=== PATIENT | male | born 1970 | race Caucasian/White ===

== ENCOUNTER 2022-07-13 07:55 | Emergency (ER) | payer OTHER, MEDICAID, SELFPAY ==
--- NOTE | 2022-07-13 08:05 | DI.CT.S_ITS ---
PROCEDURE: CT KIDNEY URETER BLADDER (KUB) INDICATIONS: LLQ pain, hematuria TECHNIQUE: Axial sections were acquired from the lung bases to the pubic symphysis. Coronal and sagittal reformats were performed. For radiation dose reduction, the following was used: automated exposure control, adjustment of mA and/or kV according to patient size. COMPARISON: None. FINDINGS: Image quality: Excellent. Lung bases: Unremarkable. Heart: No significant findings. URINARY: Right Kidney: Large burden of punctate, nonobstructing stones. No hydronephrosis. Right Ureter: No hydroureter. Left Kidney: Large burden of punctate, nonobstructing stones. No hydronephrosis. Left Ureter: No hydroureter. Bladder: Normal wall thickness. No stones. ABDOMEN: Liver: Subcentimeter hypoattenuating lesion, too small to characterize by CT, located in segment 4A. Gallbladder: Unremarkable. Biliary ducts: Unremarkable. Pancreas: Unremarkable. Spleen: Unremarkable. Adrenal Glands: Unremarkable. Stomach and Bowel: Stomach, small bowel loops, and colon are unremarkable. Prior partial colectomy, surgical anastomosis in the deep pelvis. Peritoneum: No abnormal intraperitoneal fluid. No free air. Ventral Wall: No hernia. Abdominal Nodes: No enlarged retroperitoneal or mesenteric lymph nodes. Vessels: Aorta and inferior vena cava are normal in size. PELVIS: Pelvic Organs: Unremarkable. Pelvic Nodes: Unremarkable. Miscellaneous: Small left inguinal hernia containing fat. Bones: Unremarkable. IMPRESSION: Large burden of punctate, nonobstructing stones. No hydronephrosis. Dictated by: Tk Grubbs M.D. on 07/13/2022 at 8:27 Approved by: Tk Grubbs M.D. on 07/13/2022 at 8:29
[2022-07-13 08:06] VITALS: BP 131/90; PULSE 74; RESP 16; TEMP 36.6; O2SAT 97; BMI 34.0
--- NOTE | 2022-07-13 08:07 | ED.ABDPAIN ---
HPI - Abdominal Pain General Chief Complaint: Urogenital-Male Stated Complaint: urinating blood Time Seen by Provider: 07/13/22 07:59 History of Present Illness HPI narrative: 52-year-old smoker with history of multiple bowel surgeries and prior kidney stones presents with a chief complaint of left lower quadrant pain and hematuria for the past 24 hours. He states this does feel different than his prior kidney stones but it is hard for him to differentiate the abdominal discomfort as he is pretty much always in pain given his scar tissue and prior surgeries. He denies any fever or chills. He has no back pain. He denies nausea, vomiting or diarrhea. He started noting blood in his urine 24 hours ago and denies any dysuria, frequency or urgency. He does not take blood thinners. He denies obvious provocation, palliation or radiation of his pain Related Data Previous Rx's Medication Instructions Recorded hydrocodone 5 mg-acetaminophen 325 1 tab PO Q4-6H PRN pain #10 tabs 07/13/22 mg tablet ondansetron 4 mg disintegrating 4 mg PO TID-QID PRN nausea and 07/13/22 tablet vomiting #10 tabs tamsulosin 0.4 mg capsule (Flomax) 0.4 mg PO DAILY #30 caps 07/13/22 Review of Systems Review of Systems Narrative: GENERAL: Denies chills, fatigue, malaise, fever, sweats. HEENT: Denies sinus pain, ear pain, sore throat, difficulty swallowing, dizziness. RESPIRATORY: Denies dyspnea, cough, wheezing, hemoptysis, sputum. CARDIOVASCULAR: Denies chest pain, palpitations, orthopnea, edema, GASTROINTESTINAL: Denies nausea, vomiting, abdominal pain, diarrhea, constipation, melena. : See HPI MUSCULOSKELETAL: denies weakness, joint pain, or bony pain SKIN: Denies rash, skin lesions, or other NEUROLOGIC: Denies weakness, headache, numbness, change in speech, confusion, seizures, incoordination. PSYCHIATRIC: No concerning psychosocial issues. 12 point review of systems is negative except for those stated above Exam Narrative Exam Narrative: GENERAL: [52] year old patient appears stated age. Well-developed patient, in mild distress. Appears uncomfortable, rubbing his left lower abdomen HEAD: Atraumatic. Normocephalic. EYES: Pupils equal round and reactive. Extraocular motions intact. No scleral icterus. No injection or drainage. ENT: Nose without bleeding, purulent drainage. Throat without erythema, tonsillar hypertrophy or exudate. Airway patent. NECK: Trachea midline. Non tender CARDIOVASCULAR: Regular rate and rhythm without murmurs, gallops, or rubs. RESPIRATORY: Clear to auscultation. Breath sounds equal bilaterally. No wheezes, rales, or rhonchi. GASTROINTESTINAL: Abdomen soft, non-tender, nondistended. EXTREMITIES: No edema or joint tenderness. BACK: Nontender without deformity or crepitance. No flank tenderness. NEURO: AOx3. SKIN: No rash or erythema of visible areas Initial Vital Signs Initial Vital Signs: Vital Signs Temperature 97.9 F 07/13/22 08:06 Pulse Rate 74 07/13/22 08:06 Respiratory Rate 16 07/13/22 08:06 Blood Pressure 131/90 07/13/22 08:06 Pulse Oximetry 97 07/13/22 08:06 Oxygen Delivery Method Room Air 07/13/22 08:06 Course Orders Ordered: ED Orders 07/13/22 08:05 CT kidney ureter bladder (KUB) Stat 07/13/22 08:09 Ictotest Urine Stat Urinalysis and Microscopic Stat Urine Culture Stat 07/13/22 08:15 Complete Blood Count AUTO DIFF Stat Comprehensive Metabolic Panel Stat Prothrombin Time INR Stat Discontinued Medications Ketorolac Tromethamine (Ketorolac 30 Mg/Ml Vial) 15 mg IV NOW ONE Stop: 07/13/22 08:40 Tamsulosin HCl (Tamsulosin 0.4 Mg Capsule) 0.4 mg PO NOW ONE Stop: 07/13/22 08:40 Vital Signs Vital signs: Vital Signs - 8 hr 07/13/22 08:06 Temperature 97.9 F Pulse Rate 74 Respiratory Rate 16 Blood Pressure 131/90 Pulse Oximetry 97 Oxygen Delivery Method Room Air MDM - Abdominal Pain Lab Data 07/13/22 08:15 07/13/22 08:15 Labs: Lab Results 07/13/22 07/13/22 07/13/22 Range/Units 08:09 08:15 08:15 WBC 3.5 L (4.5-11.0) X10^3/uL RBC 4.88 (4.5-5.9) X10^6/uL Hgb 15.6 (13.5-17.5) g/dL Hct 45.4 (41-53) % MCV 93.0 (80-100) fL MCH 31.9 (26-34) PG MCHC 34.3 (30-36) % RDW 13.5 (11.6-14.8) % Plt Count 280 (150-400) X10^3/uL Neut % (Auto) 51.7 (50-75) % Lymph % (Auto) 22.6 L (25-40) % [place] % (Auto) 18.5 H (3-14) % Eos % (Auto) 6.3 H (2-4) % Baso % (Auto) 0.9 (0-2) % Neut # (Auto) 1800 (5183-0738) /uL Lymph # (Auto) 800 L (0975-7637) /uL [place] # (Auto) 700 (0-900) /uL Eos # (Auto) 200 (0-450) /uL Baso # (Auto) 0 (0-100) /uL PT 12.1 (10.1-12.7) SECONDS INR 1.1 (0.9-1.3) Sodium (137-145) mmol/L Potassium (3.4-5.1) mmol/L Chloride (98-107) mmol/L Carbon Dioxide (22-32) mmol/L BUN (9-20) mg/dL Creatinine (0.66-1.25) mg/dL Estimated GFR (>60) mL/min BUN/Creatinine Ratio (6-22) Glucose (70-100) mg/dL Calcium (8.4-10.2) mg/dL Total Bilirubin (0.2-1.3) mg/dL AST (17-59) IU/L ALT (<50) IU/L Alkaline Phosphatase (38-126) U/L Total Protein (6.3-8.2) g/dL Albumin (3.5-5.0) g/dL Globulin (1.7-4.1) g/dL Albumin/Globulin Ratio (1.0-2.8) Urine Color Red Urine Appearance Cloudy Urine pH 7.0 (4.5-8.0) Ur Specific [place] 1.020 (1.000-1.035) Urine Protein Trace H (Negative) Urine Glucose (UA) Negative (Negative) g/dL Urine Ketones Negative (NEGATIVE) Urine Occult Blood 3+ H (Negative) Urine Nitrate Negative (Negative) Urine Bilirubin 1+ H (NEGATIVE) Ur Bilirubin Confirm Negative (Negative) Urine Urobilinogen 1.0 (0.2) E.U./dL Ur Leukocyte Esterase Trace H (NEGATIVE) Urine RBC >100/hpf H (0-5/HPF) Urine WBC 1-5/hpf (0-5/HPF) Ur Squamous Epith Cells 0-1 /hpf (0-5/HPF) Urine Bacteria None seen (None) Ur Culture Indicated? Specimen cultured 07/13/22 Range/Units 08:15 WBC (4.5-11.0) X10^3/uL RBC (4.5-5.9) X10^6/uL Hgb (13.5-17.5) g/dL Hct (41-53) % MCV (80-100) fL MCH (26-34) PG MCHC (30-36) % RDW (11.6-14.8) % Plt Count (150-400) X10^3/uL Neut % (Auto) (50-75) % Lymph % (Auto) (25-40) % [place] % (Auto) (3-14) % Eos % (Auto) (2-4) % Baso % (Auto) (0-2) % Neut # (Auto) (0213-1553) /uL Lymph # (Auto) (5444-5449) /uL [place] # (Auto) (0-900) /uL Eos # (Auto) (0-450) /uL Baso # (Auto) (0-100) /uL PT (10.1-12.7) SECONDS INR (0.9-1.3) Sodium 138 (137-145) mmol/L Potassium 4.2 (3.4-5.1) mmol/L [place] 103 (98-107) mmol/L Carbon Dioxide 28 (22-32) mmol/L BUN 20 (9-20) mg/dL Creatinine 0.91 (0.66-1.25) mg/dL Estimated GFR > 60 (>60) mL/min BUN/Creatinine Ratio 22.0 (6-22) Glucose 119 H (70-100) mg/dL Calcium 9.0 (8.4-10.2) mg/dL Total Bilirubin 0.7 (0.2-1.3) mg/dL AST 26 (17-59) IU/L ALT 18 (<50) IU/L Alkaline Phosphatase 71 (38-126) U/L Total Protein 7.7 (6.3-8.2) g/dL Albumin 4.2 (3.5-5.0) g/dL Globulin 3.5 (1.7-4.1) g/dL Albumin/Globulin Ratio 1.2 (1.0-2.8) Urine Color Urine Appearance Urine pH (4.5-8.0) Ur Specific [place] (1.000-1.035) Urine Protein (Negative) Urine Glucose (UA) (Negative) g/dL Urine Ketones (NEGATIVE) Urine Occult Blood (Negative) Urine Nitrate (Negative) Urine Bilirubin (NEGATIVE) Ur Bilirubin Confirm (Negative) Urine Urobilinogen (0.2) E.U./dL Ur Leukocyte Esterase (NEGATIVE) Urine RBC (0-5/HPF) Urine WBC (0-5/HPF) Ur Squamous Epith Cells (0-5/HPF) Urine Bacteria (None) Ur Culture Indicated? Imaging Data CT scan - abdomen/pelvis: Radiologist's Impression: Large burden of punctate nonobstructing stones, no hydronephrosis MDM Narrative Medical decision making narrative: CC: 52-year-old male with hematuria Complicating co-morbidities: Prior bowel surgeries, kidney stones, age greater than 50 Data collected from: Patient Medical records reviewed: Prior notes reviewed in our EMR Differential considered, but not limited to: Kidney stone, bowel issue, urine infection versus other Exam documented above, pertinent findings include: Left lower quadrant pain Lab Test results independently reviewed as above. Pertinent findings: Independently reviewed EKG as above Imaging studies independently reviewed: Large burden of punctate stones, no obstructive process Treatments: Toradol and Flomax Re-evaluation: Pain controlled, tolerating orals Discussion: Patient with left lower quadrant pain and hematuria with history of kidney stones. Pain is well controlled, there is no signs of sepsis, no infective process noted in urine or otherwise. No evidence of renal impairment. Imaging demonstrates multiple stones but no obstruction. Blood is not gross hematuria, indication for CT IVP at this time not indicated. Most likely from kidney stone. Patient given contact info for local urology and we turned instructions Disposition: see below, along with detailed discharge instructions that have been reviewed with patient as well as indications for ED re-evaluation and additional outpatient follow up Discharge Plan Departure Patient Disposition: Home Clinical Impression: Kidney calculi, Hematuria Instructions: DI for Kidney Stones, DI for Hematuria Activity Restrictions/Additional Instructions: *You have been diagnosed with [kidney stones and blood in the urine] *What to do: *Please continue to take your regular medications as directed. [x ] New medication prescriptions sent to your pharmacy: [ [facility] in [place]] [ ] New medication written as a paper prescription [ ] No new medications given *Please follow up with your primary care provider in 2-3 days, call for an appointment. Let them know you were seen in the Emergency Department and that we ask that you be seen in follow up. We will electronically transmit a record of today's note if your PCP is in our system * also as we discussed, I have given you contact information for the local urology group. Please call the number listed below, let them know that you were seen and evaluated in the emergency department and we would like you seen in follow-up. I will electronically transmitted a copy of the note *Return to Emergency Department if you should have any new, worsening or concerning symptoms, such as [fever greater than 101 F, shaking chills, worsening pain, persistent vomiting or other bothersome symptoms You have been prescribed a short course of narcotic medications. These are potentially dangerous and addictive medications that should be used carefully. While on these medications you cannot drive or operate heavy machinery. Additionally, you cannot sign legal documents or perform any duties such as this. Many people get constipated on narcotic medications so it would be advisable to discuss stool softeners with the pharmacist when you greens picker your prescription. Please understand that we cannot provide further refills of narcotics or controlled substances through the ED and your pain management will need to be through your Primary Care Provider] Prescriptions: New hydrocodone-acetaminophen 5-325 mg tablet 1 tab PO Q4-6H PRN (Reason: pain) Qty: 10 0RF tamsulosin [Flomax] 0.4 mg capsule 0.4 mg PO DAILY Qty: 30 0RF ondansetron 4 mg tablet,disintegrating 4 mg PO TID-QID PRN (Reason: nausea and vomiting) Qty: 10 0RF Referrals: Juan M Pride MD [Physician] - Stand Alone Forms: Patient Portal/API
[2022-07-13 08:20] LABS: Add Manual Diff / Slide Review NO; Basophils Absolute Auto 0 /uL (0-100); Basophils Percent Auto 0.9 % (0-2); Eosinophils Absolute Auto 200 /uL (0-450); Eosinophils Percent Auto 6.3 % (2-4); Hematocrit 45.4 % (41-53); Hemoglobin 15.6 g/dL (13.5-17.5); Lymphocytes Absolute Auto 800 /uL (1100-4500); Lymphocytes Percent Auto 22.6 % (25-40); Mean Corpuscular HGB Conc 34.3 % (30-36); Mean Corpuscular Hemoglobin 31.9 PG (26-34); Monocytes Absolute Auto 700 /uL (0-900); Monocytes Percent Auto 18.5 % (3-14); Neutrophils Absolute Auto 1800 /uL (1500-7000); Neutrophils Percent Auto 51.7 % (50-75); Platelet Count 280 X10^3/uL (150-400); Red Blood Cell Count 4.88 X10^6/uL (4.5-5.9); Red Cell Distribution Width 13.5 % (11.6-14.8); White Blood Cell Count 3.5 X10^3/uL (4.5-11.0)
[2022-07-13 08:21] LABS: Appearance Urine UA CLOUDY; Bilirubin Urine UA 1+ (NEGATIVE); Color Urine UA RED; Glucose Urine UA NEGATIVE (Negative); Ketones Urine UA NEGATIVE (NEGATIVE); Leukocyte Esterase Urine UA TRACE (NEGATIVE); Nitrite Urine UA NEGATIVE (Negative); Occult Blood Urine UA 3+ (Negative); Protein Urine UA TRACE (Negative)
[2022-07-13 08:24] LABS: Ictotest Urine Negative (Negative)
[2022-07-13 08:26] LABS: Bacteria Urine None Seen; RBC Urine >100/HPF (0-5/HPF); Squamous Epithelial Cell Urine 0-1 /HPF (0-5/HPF); WBC Urine 1-5/HPF (0-5/HPF)
[2022-07-13 08:26] LABS: INR 1.1 (0.9-1.3); Prothrombin Time 12.1 SECONDS (10.1-12.7)
[2022-07-13 08:27] LABS: Culture Indicated Urine Specimen Cultured
[2022-07-13 08:31] LABS: Alanine Aminotransferase 18 IU/L (<50); Albumin 4.2 g/dL (3.5-5.0); Albumin Globulin Ratio 1.2 (1.0-2.8); Alkaline Phosphatase 71 U/L (38-126); Aspartate Aminotransferase 26 IU/L (17-59); Bilirubin Total 0.7 mg/dL (0.2-1.3); Blood Urea Nitrogen 20 mg/dL (9-20); Carbon Dioxide 28 mmol/L (22-32); Chloride 103 mmol/L (98-107); Estimated Glomerular Filt Rate > 60 mL/min (>60); Globulin 3.5 g/dL (1.7-4.1); Glucose 119 mg/dL (70-100); HEMOLYSIS < 15 (0-50); Potassium 4.2 mmol/L (3.4-5.1); Sodium 138 mmol/L (137-145); Total Protein 7.7 g/dL (6.3-8.2)
[2022-07-13] MEDS: KETOROLAC 30 MG/ML VIAL 15 MG IV (08:53)
[2022-07-13] MEDS: TAMSULOSIN 0.4 MG CAPSULE PO (08:54)
== END 2022-07-13 08:54 | disposition home or self-care (01) ==
PROVIDERS: Emergency Provider Emergency Medicine
DX: N20.0 Calculus of kidney (principal); R31.9 Hematuria, unspecified
CPT/HCPCS: 36415; 74176; 80053; 81001; 85025; 85610; 87086; 96374; 99284; J1885

== ENCOUNTER 2024-02-14 13:35 | Emergency (ER) | payer OTHER, MEDICAID, SELFPAY ==
[2024-02-14] VITALS (14 sets, daily range): BP systolic 114–154; BP diastolic 68–88; PULSE 61–83; RESP 12–21; TEMP 36.8–37.1; O2SAT 96–100; BMI 31.0
--- NOTE | 2024-02-14 13:47 | ED_ITS ---
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 He has had a stressful day at work today was ?yelled at like he was an 6-year-old and within 2 hours is having severe abdominal pain. Starts at his umbilicus and radiates into the left side. He describes it as a squeezing pulling tugging feeling far worse than usual pain that he has become accustomed to. Nauseated but no vomiting. He had a small stool only today. No fevers or chills. Has had extensive interactions with the medical system, multiple providers, testing , studies etcetera and has very specific requests based on this long history. He states that he believes his last CT scan was in 2021. Three days ago he apparently had a large volume of barium as part of a fecal emptying test ordered through [facility] in [place] Related Data Previous Rx's Medication Instructions Recorded hydrocodone 5 mg-acetaminophen 325 1 tab PO Q4-6H PRN pain #10 tabs 07/13/22 mg tablet ondansetron 4 mg disintegrating 4 mg PO TID-QID PRN nausea and 07/13/22 tablet vomiting #10 tabs tamsulosin 0.4 mg capsule (Flomax) 0.4 mg PO DAILY #30 caps 07/13/22 oxycodone-acetaminophen 5 mg-325 1 tab PO Q6H PRN pain #10 tabs 02/14/24 mg tablet Allergies Allergy/AdvReac Type Severity Reaction Status Date / Time Penicillins Allergy Verified 02/14/24 13:40 Review of Systems Review of Systems Narrative: Pertinent positive and negative findings as per HPI Patient History Medical History Crohn's disease Surgical History History of bowel resection Social History Smoking Status: Current some day smoker Smoking Status: Current some day smoker alcohol intake frequency: holidays/special occasions only Substance Use Type: marijuana Exam Initial Vital Signs Initial Vital Signs: Vital Signs Temperature 98.7 F 02/14/24 13:35 Pulse Rate 82 02/14/24 13:35 Respiratory Rate 14 02/14/24 13:35 Blood Pressure 138/88 02/14/24 13:35 Pulse Oximetry 99 02/14/24 13:35 Oxygen Delivery Method Room Air 02/14/24 13:35 General: Chronically ill-appearing, frustrated but Able to give a complete and coherent history. Well-nourished well-developed HEENT: Moist mucous membranes, normal sclera with reactive pupils, Respiratory: Lungs are clear to auscultation, no wheezing no rales no rhonchi. Full and symmetrical air movement Cardiac: Regular rate and rhythm no murmurs no bruits Abdomen: Soft, nontender to palpation despite descriptions of severe pain. He is certainly does not have an acute surgical abdomen Skin: Warm and dry, no rashes Neurologic: Grossly neurologically intact with no obvious asymmetries or abnormalities Extremities: No trauma, well perfused Psych: Fluent speech, clearly frustrated with medical care in general and hurting today Course Orders Ordered: ED Orders 02/14/24 13:49 Complete Blood Count AUTO DIFF Stat Comprehensive Metabolic Panel Stat Lactate (Lactic Acid) Stat Lipase Stat Magnesium Stat 02/14/24 14:12 CT abdomen pelvis w con Stat Hydromorphone HCl (Hydromorphone 0.5 Mg Inj) 0.5 mg IV Q15MIN PRN PRN Reason: Pain, Last Admin: 02/14/24 14:28 Dose: 0.5 mg Documented By: DAKOTA Discontinued Medications Sodium Chloride (Normal Saline 0.9%) 1,000 mls @ 1,000 mls/hr IV BOLUS ONE Stop: 02/14/24 15:08 Last Infusion: 02/14/24 15:58 Dose: Infused Documented By: Admin: 02/14/24 14:28 Dose: 1,000 mls/hr Documented By: DAKOTA Ondansetron HCl (Ondansetron 4 Mg/2 Ml Inj) 4 mg IV NOW ONE Stop: 02/14/24 14:10 Last Admin: 02/14/24 14:27 Dose: 4 mg Documented By: SB Vital Signs Vital signs: Vital Signs - 8 hr 02/14/24 13:35 02/14/24 13:40 02/14/24 14:00 Temperature 98.7 F Pulse Rate 82 80 77 Respiratory Rate 14 21 Blood Pressure 138/88 Pulse Oximetry 99 98 97 Oxygen Delivery Method Room Air 02/14/24 14:30 02/14/24 14:33 02/14/24 14:33 Temperature Pulse Rate 70 71 Respiratory Rate 16 15 Blood Pressure 123/72 Pulse Oximetry 96 97 Oxygen Delivery Method Room Air 02/14/24 15:00 02/14/24 15:30 02/14/24 15:58 Temperature Pulse Rate 65 65 Respiratory Rate Blood Pressure 116/73 Pulse Oximetry 97 97 Oxygen Delivery Method Room Air Room Air 02/14/24 15:58 02/14/24 16:00 02/14/24 16:00 Temperature Pulse Rate 61 64 Respiratory Rate 13 Blood Pressure 114/71 Pulse Oximetry 99 98 Oxygen Delivery Method Room Air Medical Decision Making Lab Data 02/14/24 13:49 02/14/24 13:49 Labs: Lab Results 02/14/24 Range/Units 13:49 WBC 5.5 (4.5-11.0) X10^3/uL RBC 4.99 (4.5-5.9) X10^6/uL Hgb 16.0 (13.5-17.5) g/dL Hct 46.1 (41-53) % MCV 92.3 (80-100) fL MCH 32.0 (26-34) PG MCHC 34.6 (30-36) % RDW 13.1 (11.6-14.8) % Plt Count 346 (150-400) X10^3/uL Neut % (Auto) 65.7 (50-75) % Lymph % (Auto) 18.1 L (25-40) % Dodge % (Auto) 13.7 (3-14) % Eos % (Auto) 2.1 (2-4) % Baso % (Auto) 0.4 (0-2) % Neut # (Auto) 3600 (9201-2210) /uL Lymph # (Auto) 1000 L (9641-9547) /uL Dodge # (Auto) 800 (0-900) /uL Eos # (Auto) 100 (0-450) /uL Baso # (Auto) 0 (0-100) /uL Sodium 137 (137-145) mmol/L Potassium 4.0 (3.4-5.1) mmol/L Chloride 107 (98-107) mmol/L Carbon Dioxide 23 (22-32) mmol/L BUN 17 (9-20) mg/dL Creatinine 0.80 (0.66-1.25) mg/dL Estimated GFR > 60 (>60) mL/min BUN/Creatinine Ratio 21.3 (6-22) Glucose 115 H (70-100) mg/dL Lactate 0.9 (0.7-2.1) mmol/L Calcium 9.5 (8.4-10.2) mg/dL Magnesium 2.0 (1.6-2.3) mg/dL Total Bilirubin 0.8 (0.2-1.3) mg/dL AST 31 (17-59) IU/L ALT 18 (<50) IU/L Alkaline Phosphatase 81 (38-126) U/L Total Protein 7.5 (6.3-8.2) g/dL Albumin 4.5 (3.5-5.0) g/dL Globulin 3.0 (1.7-4.1) g/dL Albumin/Globulin Ratio 1.5 (1.0-2.8) Lipase 86 (23-300) U/L Imaging Data CT scan - abdomen/pelvis: Radiologist's Impression: PROCEDURE: CT ABDOMEN PELVIS W CON INDICATIONS: abdominal pain, chrons dz, multiple prior surgeries TECHNIQUE: After the administration of intravenous contrast, axial sections acquired from the lung bases to the pubic symphysis. Coronal and sagittal reformats were performed. For radiation dose reduction, the following was used: automated exposure control, adjustment of mA and/or kV according to patient size. COMPARISON: [facility], CT, CT KIDNEY URETER BLADDER (KUB), 07/13/2022, 7:22. FINDINGS: Image quality: Diagnostic. Lower Chest: No significant findings. ABDOMEN: Liver: No solid mass. Gallbladder: No radiopaque gallstones or wall thickening. Biliary ducts: No biliary dilation. Pancreas: No ductal dilation. Spleen: Size is within normal limits. Adrenal Glands: No adrenal nodules. Kidneys and Ureters: Nonobstructing bilateral renal stones measuring up to 5 millimeters. No hydronephrosis. No solid mass. No complex renal cystic lesion which requires follow up. Stomach and Bowel: Normal colonic caliber, without significant wall thickening. Sigmoid anastomosis is noted. Few diverticula without evidence of acute diverticulitis. Normal appendix. Peritoneum: No abnormal intraperitoneal fluid. No free air. Ventral Wall: No significant ventral hernia. Abdominal Nodes: No retroperitoneal or mesenteric adenopathy by size criteria. Vessels: Aorta and inferior vena cava are normal in size. Atherosclerotic vascular calcifications. PELVIS: Pelvic Organs: Unremarkable. Bladder: No bladder wall thickening, accounting for underdistention. Pelvic Nodes: No enlarged lymph nodes. Miscellaneous: No inguinal hernias are seen. Bones: No aggressive osseous abnormality. Multilevel degenerative changes of the spine. IMPRESSION: 1. No acute findings within the abdomen or pelvis to explain patient's symptoms. 2. Nonobstructing bilateral renal stones measuring up to 5 millimeters. Dictated by: Francisco Dukes M.D. on 02/14/2024 at 15:31 MDM Narrative Medical decision making narrative: CC: abdominal pain Complicating co-morbidities: Long history of Crohn's disease, bowel surgeries, reports that any time he has a colonoscopy he ends up septic, complains of reflux so severe that is sometimes water feels like shards of ice going down his throat. Data collected from: patient Social determinants of health that may influence the patients condition: Extensive interactions with multiple levels of the medical system throughout his life Medical records reviewed: Gastroenterology notes from Dr. Toussaint January 18, 2024 are reviewed. Primary care note discussing this a tear in his colon shown by a fecal damage g which shows a rectocele.. Long discussion of disagreements between patient and other medical staff and consultants. Apparently there was no tissue diagnosis of Crohn's disease and he wanted [facility] paperwork filled out. His primary care physician declined to do so. Differential considered: Bowel obstruction, partial bowel obstruction, diverticulitis, Crohn's flare, fistula formation, other intra-abdominal surgical anomaly secondary to all of his prior surgical interventions Exam documented above, pertinent findings include: Patient appears to be slightly uncomfortable and is very self-directed with how he prefers his care to progress through his stay Lab Test results independently reviewed as above. Pertinent findings: CBC is unremarkable Chemistries are reassuring Imaging studies independently reviewed: CT scan of the abdomen does not show acute pathology Treatments: Fluid, parenteral Dilaudid, parenteral Zofran Discussion: 54-year-old gentleman with a history of Crohn's disease chronic abdominal pain multiple GI surgeries with severe pain today. Labs reassuring, CT scan of the abdomen does not reveal pathology that would require admission or surgical consult. He does not have an acute surgical abdomen. Explained all of the findings with him and explain that sometimes the best were able to do in the emergency department is describe the things that are not there. I still do not have a full explanation for why he is hurting. Offered a brief course of pain medication as we have confirmed that there are no life-threatening or surgical emergencies right now. He states that the Dilaudid made him dizzy and he had no idea about any of the other narcotics. When I discussed Percocet and suggested that it might cause constipation as a side effect he became quite angry that I did not realize he never has constipation. Again, patient is quite displeased that no answer is forthcoming. He was given copies of the CT written report so that he was able to confer for himself what I was describing for him. He will be discharged home Discharge Plan Departure Patient Disposition: Home Clinical Impression: Abdominal pain Qualifiers: Abdominal location: periumbilical Qualified Code(s): R10.33 - Periumbilical pain Instructions: DI for Abdominal Pain-Adult Activity Restrictions/Additional Instructions: I am sorry that you are suffering so much with this abdominal pain Your lab work was quite reassuring, there was no evidence of infection, active bleeding, pancreatitis or medical explanation for your pain. I have given you a copy of your CT scan report. There is no suggestion of an acute herniation that would be causing any of your pain, no bowel obstruction, no masses, no obvious inflammatory process or diverticulitis. I know that it is frustrating to not have an answer however from the emergency department I am able to tell you that you do not have a life-threatening emergency do not an to be in the hospital. I have given you a small prescription for pain medication. I understand that you prefer not to take narcotics, you do not have to have the prescription filled if you do not want to. I am concerned that you are going to have enough tenderness this evening that it might be helpful to have some Percocet on hand Please follow up with your primary care physician and/or gastroenterology specialist if your pain continues after the next 48 hours Prescriptions: New oxycodone-acetaminophen 5-325 mg tablet 1 tab PO Q6H PRN (Reason: pain) Qty: 10 0RF No Action hydrocodone-acetaminophen 5-325 mg tablet 1 tab PO Q4-6H PRN (Reason: pain) Qty: 10 0RF tamsulosin [Flomax] 0.4 mg capsule 0.4 mg PO DAILY Qty: 30 0RF ondansetron 4 mg tablet,disintegrating 4 mg PO TID-QID PRN (Reason: nausea and vomiting) Qty: 10 0RF Referrals: Tim Valentin DO [Primary Care Provider] - Stand Alone Forms: Patient Portal/API/Survey
--- NOTE | 2024-02-14 14:12 | DI.CT.S_ITS ---
PROCEDURE: CT ABDOMEN PELVIS W CON INDICATIONS: abdominal pain, chrons dz, multiple prior surgeries TECHNIQUE: After the administration of intravenous contrast, axial sections acquired from the lung bases to the pubic symphysis. Coronal and sagittal reformats were performed. For radiation dose reduction, the following was used: automated exposure control, adjustment of mA and/or kV according to patient size. COMPARISON: [facility], CT, CT KIDNEY URETER BLADDER (KUB), 07/13/2022, 7:22. FINDINGS: Image quality: Diagnostic. Lower Chest: No significant findings. ABDOMEN: Liver: No solid mass. Gallbladder: No radiopaque gallstones or wall thickening. Biliary ducts: No biliary dilation. Pancreas: No ductal dilation. Spleen: Size is within normal limits. Adrenal Glands: No adrenal nodules. Kidneys and Ureters: Nonobstructing bilateral renal stones measuring up to 5 millimeters. No hydronephrosis. No solid mass. No complex renal cystic lesion which requires follow up. Stomach and Bowel: Normal colonic caliber, without significant wall thickening. Sigmoid anastomosis is noted. Few diverticula without evidence of acute diverticulitis. Normal appendix. Peritoneum: No abnormal intraperitoneal fluid. No free air. Ventral Wall: No significant ventral hernia. Abdominal Nodes: No retroperitoneal or mesenteric adenopathy by size criteria. Vessels: Aorta and inferior vena cava are normal in size. Atherosclerotic vascular calcifications. PELVIS: Pelvic Organs: Unremarkable. Bladder: No bladder wall thickening, accounting for underdistention. Pelvic Nodes: No enlarged lymph nodes. Miscellaneous: No inguinal hernias are seen. Bones: No aggressive osseous abnormality. Multilevel degenerative changes of the spine. IMPRESSION: 1. No acute findings within the abdomen or pelvis to explain patient's symptoms. 2. Nonobstructing bilateral renal stones measuring up to 5 millimeters. Dictated by: Francisco Dukes M.D. on 02/14/2024 at 15:31 Approved by: Francisco Dukes M.D. on 02/14/2024 at 15:38
[2024-02-14 14:19] LABS: Add Manual Diff / Slide Review NO; Basophils Absolute Auto 0 /uL (0-100); Basophils Percent Auto 0.4 % (0-2); Eosinophils Absolute Auto 100 /uL (0-450); Eosinophils Percent Auto 2.1 % (2-4); Hematocrit 46.1 % (41-53); Lymphocytes Absolute Auto 1000 /uL (1100-4500); Lymphocytes Percent Auto 18.1 % (25-40); Mean Corpuscular HGB Conc 34.6 % (30-36); Mean Corpuscular Volume 92.3 fL (80-100); Monocytes Absolute Auto 800 /uL (0-900); Monocytes Percent Auto 13.7 % (3-14); Neutrophils Absolute Auto 3600 /uL (1500-7000); Neutrophils Percent Auto 65.7 % (50-75); Platelet Count 346 X10^3/uL (150-400); Red Blood Cell Count 4.99 X10^6/uL (4.5-5.9); Red Cell Distribution Width 13.1 % (11.6-14.8); White Blood Cell Count 5.5 X10^3/uL (4.5-11.0)
[2024-02-14 14:24] LABS: Lactate (Lactic Acid) 0.9 mmol/L (0.7-2.1)
[2024-02-14 14:25] LABS: Alanine Aminotransferase 18 IU/L (<50); Albumin 4.5 g/dL (3.5-5.0); Albumin Globulin Ratio 1.5 (1.0-2.8); Alkaline Phosphatase 81 U/L (38-126); Aspartate Aminotransferase 31 IU/L (17-59); BUN Creatinine Ratio 21.3 (6-22); Bilirubin Total 0.8 mg/dL (0.2-1.3); Blood Urea Nitrogen 17 mg/dL (9-20); Calcium 9.5 mg/dL (8.4-10.2); Carbon Dioxide 23 mmol/L (22-32); Chloride 107 mmol/L (98-107); Estimated Glomerular Filt Rate > 60 mL/min (>60); Glucose 115 mg/dL (70-100); HEMOLYSIS < 15 (0-50); Lipase 86 U/L (23-300); Sodium 137 mmol/L (137-145); Total Protein 7.5 g/dL (6.3-8.2)
[2024-02-14] MEDS: ONDANSETRON 4 MG/2 ML INJ IV (14:27)
[2024-02-14] MEDS: SODIUM CHLORIDE 0.9% 1,000 ML 1000 ML IV (14:28)
[2024-02-14] MEDS: HYDROMORPHONE 0.5 MG INJ IV (14:28)
== END 2024-02-14 17:56 | disposition home or self-care (01) ==
PROVIDERS: Emergency Provider Emergency Medicine; PCP Internal Medicine
DX: R10.33 Periumbilical pain (principal)
CPT/HCPCS: 36415; 74177; 80053; 83605; 83690; 83735; 85025; 96361; 96374; 96375; 99284; J1171; J2405; Q9967